=== PATIENT | female | born 1955 | race Caucasian/White ===

== ENCOUNTER 2023-02-08 23:43 | Emergency (ER) | payer OTHER ==
[~2023-02-08] VITALS: Ht 157.5 cm; Wt 68.0 kg
[2023-02-08 23:55] VITALS: BP_SYST 155; PULSE 76; RESP 18; TEMP 98.3; O2SAT 98
[2023-02-09 03:30] VITALS: BP_SYST 155; PULSE 76; RESP 18; TEMP 98.3; O2SAT 98
== END 2023-02-09 03:26 | disposition home or self-care (01) ==
LOC: SED 23:43
DX: R20.2 Paresthesia of skin (principal); R51.9 Headache, unspecified; Z88.1 Allergy status to other antibiotic agents; Z79.899 Other long term (current) drug therapy
CPT/HCPCS: 70450-TC; 71250-TC; 72125-TC; 76376; 82962; 93005; 99284